=== PATIENT | female | born 1950 | race Caucasian/White ===

== ENCOUNTER → 2021-11-27 09:27 | Outpatient (CLI) | payer MEDICARE, SELFPAY ==
--- NOTE | 2021-11-27 | DI.MRI.S_ITS ---
BREAST MRI OF BOTH BREASTS: 11/27/2021 CLINICAL: Left breast mass. The patient was placed prone in a dedicated breast imaging coil. Precontrast axial STIR and 3D FLASH without fat saturation sequences were obtained. Both before and after bolus injection of contrast, sequential 1-minute axial 3D FLASH with fat saturation sequences for 3 time points, with subtraction images and maximum intensity projections (MIP's) generated. Delayed sagittal FLASH images with fat saturation were also obtained. Computer-aided detection, including computer algorithm analysis of MRI image data for lesion detection and characterization, pharmacokinetic analysis, with further physician review for interpretation, was performed. Comparison is made to prior ultrasound and mammogram studies. There is symmetric mild background parenchymal enhancement. There is no mass in either breast. No suspicious non-mass enhancement. No skin thickening or neovascularity in either breast. No lymphadenopathy. Normal bone marrow signal intensity. Visualized portions of the liver demonstrate no evidence of mass. IMPRESSION: NEGATIVE No suspicious finding to suggest malignancy. Return to annual screening schedule recommended. This exam was interpreted at Station ID: [id number]. Electronically Signed By: Stephen Copeland M.D. jr/:11/27/2021 15:07:14 Entry: - 11/30/2021 13:56:09 ACR BI-RADS Category 1: Negative [id number]
== END ==
PROVIDERS: PCP Family Medicine; Referring Provider Family Medicine; Visit Provider Family Medicine
DX: N63.20 Unspecified lump in the left breast, unspecified quadrant (principal); Z12.39 Encounter for other screening for malignant neoplasm of breast
CPT/HCPCS: 77049